=== PATIENT | female | born 1980 | race Caucasian/White ===

== ENCOUNTER → 2025-01-30 | Day surgery (SDC) | payer OTHER ==
[~2025-01-30] MED LIST: ACETAMINOPHEN 1000 MG/100 ML 100 ML IV ONE; FENTANYL CITRATE/PF 100MCG/2 ML INJ ONE; GLYCOPYRROLATE INJ 0.2 MG/ML VIAL ONE; LIDOCAINE HCL 2% LOCAL INJ 5 ML SDV VIAL INJ ONE; MIDAZOLAM HCL 2 MG/2 ML VIAL ONE; ONDANSETRON HCL INJ 2MG/ML 2ML 2 MG/ML VIAL ONE; PROPOFOL IV EMULSION 10 MG/ML 20 ML VIAL ONE; ROCURONIUM BROMIDE 1 ML IV ONE
[2025-01-30] MEDS: LACTATED RINGER'S 1,000 ML ONE (07:45)
[2025-01-30 10:06] VITALS: TEMP 97.4
[2025-01-30] MEDS: MEPERIDINE HCL INJ 25 MG/ML VIAL ONE (10:40)
[2025-01-30 11:20] VITALS: BP 135/86; PULSE 71; RESP 16; O2SAT 98
== END | disposition home or self-care (01) ==
LOC: OR 07:23
PROVIDERS: ATTEND Otolaryngology Otolaryngology/Facial Plastic Surgery
DX: J32.8 Other chronic sinusitis (principal); J34.89 Other specified disorders of nose and nasal sinuses; Z88.0 Allergy status to penicillin; R51.9 Headache, unspecified; J34.3 Hypertrophy of nasal turbinates; Z01.818 Encounter for other preprocedural examination
CPT/HCPCS: 31254; 31267; 31276; 31288; 81025; 88305; J0131; J2003; J2175; J2250; J2405; J2704; J3010; J7121